=== PATIENT | female | born 1970 | race Two or more races ===

== ENCOUNTER 2024-04-05 07:17 | Emergency (ER) | payer OTHER ==
[~2024-04-05] VITALS: Ht 162.6 cm; Wt 49.0 kg
[2024-04-05] MEDS ORDERED: HORIZANT300 MG (07:32)
[2024-04-05] MEDS ORDERED: KETOROLAC TROMETHAMINE 30 MG VIAL IM STA (08:52)
== END 2024-04-05 10:31 | disposition home or self-care (01) ==
LOC: ER 07:18
DX: M79.602 Pain in left arm (principal); M50.323 Other cervical disc degeneration at C6-C7 level

== ENCOUNTER 2024-04-05 10:39 | Outpatient (CLI) | payer OTHER ==
[~2024-04-05 10:39] MED LIST: HORIZANT300 MG
== END 2024-04-05 10:48 | disposition home or self-care (01) ==
LOC: MRI 10:39
DX: M79.602 Pain in left arm (principal)
CPT/HCPCS: 70540